=== PATIENT | male | born 1985 | race Caucasian/White ===

== ENCOUNTER 2017-05-28 11:25 | Emergency (ER) | payer MEDICAID, SELFPAY ==
[2017-05-28 11:26] VITALS: BP 162/88; PULSE 109; RESP 20; TEMP 36.6; O2SAT 98; BMI 41.3
--- NOTE | 2017-05-28 12:13 | RAD_ITS ---
STUDY: X-RAY - LEFT KNEE REASON FOR EXAM: Male, 32 years old. Left knee pain TECHNIQUE: 3 view(s) of the knee. COMPARISON: None. FINDINGS: Normal visualized distal femur. Normal visualized proximal tibia and fibula. Normal proximal tibiofibular articulation. Normal medial femorotibial compartment. Normal lateral femorotibial compartment. Normal patellofemoral articulation. The soft tissue structures are unremarkable. RAD/Knee 3 Views IMPRESSION: Normal x-ray examination of the knee. Electronically Signed: Anisha Mathews MD at 12:35 EDT Tel , Service support ,
--- NOTE | 2017-05-28 13:10 | ED.DCSUM_ITS ---
- ER Visit Summary Date of Service: 05/28/17 Chief Complaint: Chronic left knee pain with a history of gout History of Present Illness: The patient is a 32 M c/o atraumatic left knee pain and swelling. Patient does have a history of gout but is never in his knee before. It is normal in his foot and great toe. He states today he had pain swelling his left knee. Denies fever chills. Denies redness. No trauma. Is able to walk. Physical Examination: Appearing young male. Vital signs are stable afebrile and is no septic toxic is no acute distress. H EENT exam unremarkable neck nontender lungs clear to auscultation bilaterally. Heart regular rate and rhythm no murmur. Abdomen soft nontender nondistended no giving or masses extremities moves all 4 neurovascular intact his left knee is mildly swollen. There is not hot it is not red. He is able do flexion extension. There is no signs of septic joint. He has normal range of motion to his left hip, left knee , left foot and ankle. Left foot is neurovascular intact with DP pulse. There are no signs of trauma. Test Results: X-ray of his left knee is read as normal by myself the radiologist. I did go over the x-rays with the patient. I explained to him that it does not show the cartilage. Emergency Department Course and Treatment: Will be treated as gout with prednisone. 40 mg a day for 1 week. He will also be given limited [place] 10 no refill for pain. Treatment Plan: [] Disposition: Discharge Impression: Acute left knee pain secondary to gout This note was generated with [employer] dictation software. It may contain incorrect words, spelling, and punctuation that were not noted in review of the chart prior to signing ED Disposition - Plan for ED Patient: Chief Complaint: Lower Extremity Injury Referrals: Charles Novoa MD [Primary Care Provider] -
--- NOTE | 2017-05-28 13:20 | ED.DEP ---
ED Disposition - Plan for ED Patient: Disposition: Home or Assisted Living Chief Complaint: Lower Extremity Injury Instructions: ED Arthritis Gout Prescriptions: Hydrocodone/Acetaminophen [[place] 7.5-325 Tablet] 1 ea PO Q6H PRN PRN #10 tab PRN Reason: Pain Prednisone [Deltasone] 40 mg PO DAILY 10 Days tab Referrals: Charles Novoa MD [Primary Care Provider] - 3-5 Days if not improving Additional Instructions: Prednisone 40 g a day for the gout. Limited [place] for pain. Call follow-up your primary care physician if not improving. Return to the ER if fever or a lot worse.
--- NOTE | 2017-05-28 13:24 | DCINST.ED_ITS ---
ED Disposition - Plan for ED Patient: Disposition: Home or Assisted Living Chief Complaint: Lower Extremity Injury Instructions: ED Arthritis Gout Prescriptions: Hydrocodone/Acetaminophen [[place] 7.5-325 Tablet] 1 ea PO Q6H PRN PRN #10 tab PRN Reason: Pain Prednisone [Deltasone] 40 mg PO DAILY 10 Days tab Referrals: Charles Novoa MD [Primary Care Provider] - 3-5 Days if not improving Additional Instructions: Prednisone 40 g a day for the gout. Limited [place] for pain. Call follow-up your primary care physician if not improving. Return to the ER if fever or a lot worse.
[2017-05-28] MEDS: predniSONE 20 MG Tablet 60 MG PO (13:30)
[2017-05-28 13:31] VITALS: BP 134/87; PULSE 78; RESP 16
== END 2017-05-28 13:34 | disposition home or self-care (01) ==
PROVIDERS: Emergency Provider Emergency Medicine; Family Provider Family Medicine; PCP Family Medicine
DX: M10.9 Gout, unspecified (principal); K21.9 Gastro-esophageal reflux disease without esophagitis; Z72.0 Tobacco use; Z79.899 Other long term (current) drug therapy; Z90.49 Acquired absence of other specified parts of digestive tract
CPT/HCPCS: 73562; 99283

== ENCOUNTER 2017-07-04 20:49 | Emergency (ER) | payer MEDICAID, SELFPAY ==
[2017-07-04 20:50] VITALS: BP 135/84; PULSE 108; RESP 15; TEMP 37; BMI 39.1
--- NOTE | 2017-07-04 21:08 | ED.VISSUMM ---
- ER Visit Summary Date of Service: 07/04/17 Chief Complaint: Low back pain History of Present Illness: The patient is a 32 M past medical history of congenital atrophied kidney. Patient states that he has had low back pain radiating to both legs all the way down his buttocks hamstrings and was toes. Said is for a month. Is worse with movement. Denies any fall or trauma. No fever. No weakness. Denies any bowel or bladder incontinence or retention. Physical Examination: Well-appearing young male. Vital signs are stable afebrile. H EENT exam unremarkable. Neck nontender no lymphadenopathy. Lungs clear to auscultation bilaterally. Heart regular rhythm no murmur. Abdomen is soft nontender Oscar no giving or masses. Remedies moves all 4. Neurovascular intact. Both lower extremities he has 5 motor strength and normal sensation. No cauda equina. No saddle anesthesia. Normal medial thigh sensation. 5 out of 5 motor strength in both dorsi plantar flexion. He does have a positive straight leg raise at approximately 30?. Equal and symmetrical. No reproducible low back pain. No redness or warmth. No signs of trauma. Neurologic exam normal. Normal motor strength and sensation of both lower extremities. Test Results: None Emergency Department Course and Treatment: She will be discharged home with [place] 20 no refill. Prednisone 40 mg a day. For 1 week. Treatment Plan: Follow-up with your primary care physician as soon as possible to be scheduled for an MRI. Disposition: Discharge Impression: Acute low back pain with radiculopathy consistent with a lumbar disc This note was generated with [employer] dictation software. It may contain incorrect words, spelling, and punctuation that were not noted in review of the chart prior to signing ED Disposition - Plan for ED Patient: Chief Complaint: Back Referrals: Charles Novoa MD [Primary Care Provider] -
--- NOTE | 2017-07-04 21:13 | ED.DCSUM_ITS ---
- ER Visit Summary Date of Service: 07/04/17 Chief Complaint: Low back pain History of Present Illness: The patient is a 32 M past medical history of congenital atrophied kidney. Patient states that he has had low back pain radiating to both legs all the way down his buttocks hamstrings and was toes. Said is for a month. Is worse with movement. Denies any fall or trauma. No fever. No weakness. Denies any bowel or bladder incontinence or retention. Physical Examination: Well-appearing young male. Vital signs are stable afebrile. H EENT exam unremarkable. Neck nontender no lymphadenopathy. Lungs clear to auscultation bilaterally. Heart regular rhythm no murmur. Abdomen is soft nontender Oscar no giving or masses. Remedies moves all 4. Neurovascular intact. Both lower extremities he has 5 motor strength and normal sensation. No cauda equina. No saddle anesthesia. Normal medial thigh sensation. 5 out of 5 motor strength in both dorsi plantar flexion. He does have a positive straight leg raise at approximately 30?. Equal and symmetrical. No reproducible low back pain. No redness or warmth. No signs of trauma. Neurologic exam normal. Normal motor strength and sensation of both lower extremities. Test Results: None Emergency Department Course and Treatment: She will be discharged home with [place] 20 no refill. Prednisone 40 mg a day. For 1 week. Treatment Plan: Follow-up with your primary care physician as soon as possible to be scheduled for an MRI. Disposition: Discharge Impression: Acute low back pain with radiculopathy consistent with a lumbar disc This note was generated with [employer] dictation software. It may contain incorrect words, spelling, and punctuation that were not noted in review of the chart prior to signing ED Disposition - Plan for ED Patient: Chief Complaint: Back Referrals: Charles Novoa MD [Primary Care Provider] -
--- NOTE | 2017-07-04 21:13 | ED.DEP ---
ED Disposition - Plan for ED Patient: Disposition: Home or Assisted Living Chief Complaint: Back Instructions: ED Sciatica Prescriptions: Hydrocodone Bitart/Apap 5-325 [[place] 5MG-325MG] 1 - 2 tab PO Q4H PRN PRN #20 tab PRN Reason: Pain Prednisone [Deltasone] 40 mg PO DAILY 10 Days tab Referrals: Charles Novoa MD [Primary Care Provider] - As soon as possible Additional Instructions: Prednisone daily to decrease inflammation. [place] for pain. Call follow-up your primary care physician as soon as possible you need an MRI because your exam and back pain is consistent with a lumbar disc.
--- NOTE | 2017-07-04 21:16 | DCINST.ED_ITS ---
ED Disposition - Plan for ED Patient: Disposition: Home or Assisted Living Chief Complaint: Back Instructions: ED Sciatica Prescriptions: Hydrocodone Bitart/Apap 5-325 [[place] 5MG-325MG] 1 - 2 tab PO Q4H PRN PRN #20 tab PRN Reason: Pain Prednisone [Deltasone] 40 mg PO DAILY 10 Days tab Referrals: Charles Novoa MD [Primary Care Provider] - As soon as possible Additional Instructions: Prednisone daily to decrease inflammation. [place] for pain. Call follow-up your primary care physician as soon as possible you need an MRI because your exam and back pain is consistent with a lumbar disc.
[2017-07-04 21:25] VITALS: PULSE 86; RESP 14
[2017-07-04] MEDS: HYDROcodone Bitartrate/Apap 5/325 Tablet PO (21:25)
[2017-07-04] MEDS: predniSONE 20 MG Tablet 40 MG PO (21:25)
== END 2017-07-04 21:31 | disposition home or self-care (01) ==
PROVIDERS: Emergency Provider Emergency Medicine; Family Provider Family Medicine; PCP Family Medicine
DX: M54.5 Low back pain (principal); M54.16 Radiculopathy, lumbar region; Q60.5 Renal hypoplasia, unspecified; K21.9 Gastro-esophageal reflux disease without esophagitis; Z72.0 Tobacco use; Z79.899 Other long term (current) drug therapy
CPT/HCPCS: 99283

== ENCOUNTER 2017-09-01 09:52 | Emergency (ER) | payer MEDICAID, SELFPAY ==
[2017-09-01 09:52] VITALS: BP 153/90; PULSE 100; RESP 18; TEMP 36.4; O2SAT 99; BMI 38.4
--- NOTE | 2017-09-01 10:10 | ED.VISSUMM ---
- ER Visit Summary Date of Service: 09/01/17 Chief Complaint: Foot pain History of Present Illness: The patient is a 32 M with right-sided foot pain. The pain is over his proximal and dorsal right foot near the ankle. It does not radiate. This came on gradually over the last 2 days. He denies any injury or inciting event. He had this before, but was unsure of the cause and it seemed to get better. He does have a history of gout in his right small toe. He has not noted any redness, warmth, or swelling. Denies any weakness or numbness. Denies any skin changes. Denies any history of DVT or calf pain. No fevers or systemic symptoms. Physical Examination: Afebrile and vital signs unremarkable. Nontoxic and in no acute distress. Foot and ankle inspection is normal. Skin appears normal. No deformities. Right lower leg is nontender except for his foot. He does have some dorsal and proximal foot tenderness. Good range of motion. No laxity. No warmth or redness noted. Neurovascularly intact distally. Test Results: X-rays ordered Emergency Department Course and Treatment: Patient treated with [place] and naproxen while awaiting results. X-rays showed heel spurs but nothing acute. Patient will be given crutches. Rest, ice, elevate. Anti-inflammatories for pain. Follow-up with primary care. Return for redness, warmth, swelling, increasing pain, or any other concerning symptoms. Treatment Plan: As above Disposition: Discharged Impression: 1. Right foot pain This note was generated with [employer] dictation software. It may contain incorrect words, spelling, and punctuation that were not noted in review of the chart prior to signing ED Disposition - Plan for ED Patient: Chief Complaint: Lower Extremity Injury Referrals: Charles Novoa MD [Primary Care Provider] -
--- NOTE | 2017-09-01 10:25 | RAD_ITS ---
STUDY: X-RAY - LEFT FOOT CLINICAL: Male, 32 years old. Pain. No known injury. TECHNIQUE: 3 view(s) of the foot. COMPARISON: None. FINDINGS: There is an enthesophyte involving the posterior superior calcaneus at the site of insertion of the Achilles tendon. Small plantar spur. Normal visualized subtalar, talonavicular, calcaneocuboid, tarsal and tarsometatarsal articulations. Normal metatarsi. Normal metatarsophalangeal joint of the great toe. Normal tibial and fibular sesamoid bones. Normal interphalangeal joint of the great toe. Normal phalanges of the great toe. Normal second through fifth metatarsophalangeal joints. Normal interphalangeal joints and phalanges of the lesser toes. The soft tissue structures are unremarkable. RAD/Foot min 3 Views IMPRESSION: Calcaneal spurs. Electronically Signed: Moy De Luna MD at 11:06 EDT Tel [phone], Service support ,
[2017-09-01] MEDS: Naproxen 500 MG Tablet PO (10:30)
[2017-09-01] MEDS: HYDROcodone Bitartrate/Apap 5/325 Tablet PO (10:30)
--- NOTE | 2017-09-01 11:28 | ED.DEP ---
ED Disposition - Plan for ED Patient: Chief Complaint: Lower Extremity Injury Instructions: Osteoarthritis: Protecting Your Joints Prescriptions: Naproxen [Naprosyn] 500 mg PO BID #14 tab Referrals: Charles Novoa MD [Primary Care Provider] -
== END 2017-09-01 11:39 | disposition home or self-care (01) ==
LOC: ED 10:08
PROVIDERS: Emergency Provider Emergency Medicine; Family Provider Family Medicine; PCP Family Medicine
DX: M79.671 Pain in right foot (principal); M77.32 Calcaneal spur, left foot; Z79.899 Other long term (current) drug therapy; Z86.39 Personal history of other endocrine, nutritional and metabolic disease
CPT/HCPCS: 73630; 99282

== ENCOUNTER 2017-10-29 02:02 | Emergency (ER) | payer MEDICAID, SELFPAY ==
[2017-10-29 02:02] VITALS: RESP 18; O2SAT 99
[2017-10-29 02:03] VITALS: BP 167/97; PULSE 90; RESP 17; TEMP 36.4; O2SAT 99; BMI 39.4
--- NOTE | 2017-10-29 02:14 | ED.RN ---
RN CALLED FOR EKG, PULLED OLD EKGS FOR
[2017-10-29] MEDS: Ipratropium/Albuterol Sulfate 3 ML AMPUL.NEB INHALATION (02:19)
[2017-10-29 02:20] VITALS: PULSE 81; RESP 10
--- NOTE | 2017-10-29 03:21 | ED.VISSUMM ---
- ER Visit Summary Date of Service: 10/29/17 Chief Complaint: [Cough and chest discomfort] History of Present Illness: The patient is a 32 M [presents the emergency department complaint of cough that started about a week ago. Patient coughing up some green to yellow phlegm at times. He denies any fever. Patient states that since 9 PM he said some tightness in his chest. He denies nausea or vomiting. Patient denies recent travel or surgery. Patient denies any sick contacts.] Physical Examination: [HEENT-PERRLA, EOMI. Cranial nerves II through XII grossly intact. TMs clear. Mucous membranes moist. No adenopathy. Cardiovascular-regular rate and rhythm without murmur or ectopy Lungs-good aeration bilaterally. Patient has some faint expiratory wheezes noted. No accessory muscle use or retractions. Abdomen-normoactive bowel sounds, soft, nontender, no rebound or rigidity, no peritoneal signs. Extremities-intact ?4, normal range of motion, normal pulses, atraumatic] Test Results: [Chest x-ray obtained showed nothing acute. EKG obtained showed a sinus rhythm with a ventricular rate of 82 bpm with occasional PACs otherwise nothing acute.] Emergency Department Course and Treatment: [Patient was given a DuoNeb aerosol with good symptom relief. Patient will be started on prednisone and Zithromax] Treatment Plan: Patient will be dispensed an albuterol MDI and given a prescription for prednisone as well as Zithromax [] Disposition: [Discharged home in stable condition. Patient advised to follow-up with his primary care physician within next 5-7 days.] Impression: [Asthmatic bronchitis] This note was generated with [employer] dictation software. It may contain incorrect words, spelling, and punctuation that were not noted in review of the chart prior to signing ED Disposition - Plan for ED Patient: Chief Complaint: Chest Pain Referrals: Charles Novoa MD [Primary Care Provider] -
--- NOTE | 2017-10-29 03:24 | ED.DEP ---
ED Disposition - Plan for ED Patient: Chief Complaint: Chest Pain Instructions: ED Bronchitis Asthmatic Prescriptions: Azithromycin [Zithromax] 250 mg PO DAILY #4 tab Prednisone [Deltasone] 20 mg PO BID #6 tab Referrals: Charles Novoa MD [Primary Care Provider] - 5-7 Days
[2017-10-29 03:32] VITALS: BP 125/83; PULSE 82; RESP 16; O2SAT 99
[2017-10-29] MEDS: Azithromycin 250 MG Tablet 500 MG PO (03:37)
[2017-10-29] MEDS: predniSONE 20 MG Tablet 40 MG PO (03:37)
== END 2017-10-29 03:38 | disposition home or self-care (01) ==
LOC: ED 02:22
PROVIDERS: Emergency Provider Emergency Medicine; Family Provider Family Medicine; PCP Family Medicine
DX: J45.909 Unspecified asthma, uncomplicated (principal); I49.1 Atrial premature depolarization; Q60.0 Renal agenesis, unilateral; Z72.0 Tobacco use; Z79.899 Other long term (current) drug therapy
CPT/HCPCS: 71046; 93005; 94640; 99283; A4216

== ENCOUNTER 2017-11-28 01:12 | Emergency (ER) | payer MEDICAID, SELFPAY ==
[2017-11-28 01:13] VITALS: BP 135/86; PULSE 134; RESP 18; TEMP 36.7; O2SAT 96; BMI 40.1
--- NOTE | 2017-11-28 01:29 | EKG12_ITS ---
Test Reason : BACK PAIN Blood Pressure : / mmHG Vent. Rate : 115 BPM Atrial Rate : 115 BPM P-R Int : 156 ms QRS Dur : 064 ms QT Int : 288 ms P-R-T Axes : 060 061 040 degrees QTc Int : 398 ms Sinus tachycardia Low voltage QRS Borderline ECG Confirmed by MAYTE BOLAÑOS MD ([id number]), graphics editor CALLIE ENRIQUEZ ([id number] on 12/01/2017 8:57:40 AM Referred By: JARVIS Confirmed By:MAYTE BOLAÑOS MD
--- NOTE | 2017-11-28 01:31 | CT_ITS ---
STUDY: CT ABDOMEN AND PELVIS WITHOUT CONTRAST REASON FOR EXAM: Male, 32 years old. Back pain [place]. History of back pain and elevated blood pressure, GERD, single right kidney since , multiple abdominal surgeries as child, cholecystectomy RADIATION DOSAGE (If Supplied By Facility): CTDIvol = ( 26.62 ) mGy, DLP = ( 1481.34 ) mGycm TECHNIQUE: Transaxial 3.75 mm images were obtained from the dome of the diaphragm to the symphysis pubis without oral contrast, and without intravenous contrast. Sagittal and coronal images were reconstructed. Negative noncontrast Individualized dose optimization techniques were used for this CT. COMPARISON: None. FINDINGS: Minimal atelectasis in the left. The visualized portions of the heart are within normal limits. There is decreased attenuation of the enlarged liver consistent with steatosis. There are surgical clips in the gallbladder fossa consistent with a prior cholecystectomy. Normal spleen. Normal pancreas. Normal bilateral adrenal glands. Stable lobular contour and likely compensatory hypertrophy. The right ureter extensive posterior to the right kidney to the right lateral abdominal wall, then loops inferiorly to the right UVJ as on previous exam. There is severe cortical atrophy of the left kidney, consistent with chronic medical renal disease. Normal visualized stomach. Normal small intestine. Normal colon. The appendix is visualized and appears normal. Normal abdominal aorta. Normal inferior vena cava. Normal retroperitoneum. Small outpouching along the left wall of the urinary bladder not seen on previous examination probable small diverticulum. Normal visualized prostate gland. Normal abdominal wall. Obesity. Stable mild retrolisthesis of L5 on S1. Spinal canal and foraminal stenosis L3, L4 and L5 without change.. CT/Abdomen/Pelvis without Cont IMPRESSION: Mild hepatomegaly and stable hepatic steatosis. Cholecystectomy. Stable lobular contour of the right kidney with mild hypertrophy, postsurgical changes along the right ureteral course and severe left renal involution are stable findings. Other nonacute findings as outlined above. Electronically Signed: Patricia Carrillo MD at 2:42 EDT , Service support ,
--- NOTE | 2017-11-28 01:31 | CT_ITS ---
STUDY: CT CHEST WITHOUT CONTRAST REASON FOR EXAM: Male, 32 years old. Back pain [place]. History of back pain and elevated blood pressure, GERD, single right kidney since , multiple abdominal surgeries as child, cholecystectomy RADIATION DOSAGE (If Supplied By Facility): CTDIvol = ( 24.51 ) mGy, DLP = ( 918.20 ) mGycm TECHNIQUE: Transaxial 2.5 mm imaging was performed without the administration of intravenous contrast material. Multiplanar coronal and sagittal images were reformatted. This examination is limited for the evaluation of gastrointestinal, solid organs and vascular structures due to the lack of intravenous contrast. Individualized dose optimization techniques were used for this CT. COMPARISON: Chest x-ray 10/29/2017. FINDINGS: Round low-attenuation 1 cm in the left thyroid lobe is indeterminate. Minimal atelectasis in the lingula. Few linear interstitial changes in the bases likely scarring. Noncalcified nodule in the left upper lobe approximately 0.3 x 0.5 cm image 38 series 6. There is no demonstrated pleural abnormality. Normal heart and pericardium. Normal mediastinum. Normal hilar regions. Normal unenhanced pulmonary arteries. Normal aorta arch and descending thoracic aorta. Age-appropriate osseous structures. Obesity. Upper abdominal assessment please refer to CT abdomen pelvis. CT/Chest without Contrast IMPRESSION: There is no acute cardiopulmonary disease. Mild atelectasis in the lingula. Other nonacute findings as outlined above. Electronically Signed: Patricia Carrillo MD at 2:32 EDT , Service support ,
--- NOTE | 2017-11-28 01:32 | ED.VISSUMM ---
- ER Visit Summary Date of Service: 11/28/17 Chief Complaint: Back pain History of Present Illness: The patient is a 32 M who presents for back pain with onset yesterday evening. Patient [place], and he began developing mid back pain last evening. Pain is severe. He has history of chronic back pain but states that is usually in the lower back, and this is in the upper back. Pain is midline. No radiation. Patient denies nausea or vomiting or abdominal pain. He does have associated mild shortness of breath and cough. Denies numbness or tingling in the legs, no weakness, no fever, no abdominal pain, no bowel or bladder incontinence or retention. Patient has history of only one kidney. Denies alcohol or drug use. Physical Examination: Vital signs: afebrile, hemodynamically stable, no hypoxia on room air General: well nourished, well developed, eating on edge of bed, appears uncomfortable, fidgety Skin: warm, dry, no rash, no pallor HEENT: normocephalic and atraumatic; PERRL, EOMI, moist mucous membranes Cardiovascular: Tachycardiac rate and regular rhythm without murmurs, no peripheral edema, 2+ pulses all distal extremities Respiratory: No increased work of breathing, lungs are clear to auscultation bilaterally, no rales, rhonchi or wheezing Abdominal: Abdomen is soft, nontender with normoactive bowel sounds, no guarding or rebound, no pulsatile masses Back: No significant midline tenderness deformities or step-offs in the thoracic or lumbar spine, no significant paraspinal tenderness, no CVA tenderness MSK: Moves all extremities, no deformities, normal strength Neuro: Awake and alert, oriented ?4. No facial droop, sensation and motor function intact and symmetric Test Results: Clinical Impression(s) from Imaging Studies Abdomen/Pelvis CT 11/28/17 01:31 IMPRESSION: Mild hepatomegaly and stable hepatic steatosis. Cholecystectomy. Stable lobular contour of the right kidney with mild hypertrophy, postsurgical changes along the right ureteral course and severe left renal involution are stable findings. Other nonacute findings as outlined above. Electronically Signed: Patricia Carrillo MD at 2:42 EDT , Service support , ADDENDUM: 11/28/[address] 11/28/17 01:31 IMPRESSION: There is no acute cardiopulmonary disease. Mild atelectasis in the lingula. Other nonacute findings as outlined above. Electronically Signed: Patricia Carrillo MD at 2:32 EDT , Service support , ADDENDUM: 11/28/17 0240 Abnormal Lab Results 11/28/17 11/28/17 01:35 01:35 WBC 14.9 H RBC 5.51 Hgb 15.8 Hct 47.8 MCV 86.8 MCH 28.7 MCHC 33.1 RDW 15.1 H RDW Differential 48.1 H Plt Count 267 MPV 10.0 Immature Gran % (Auto) 0.300 Neut % (Auto) 70.0 Lymph % (Auto) 20.1 Gage % (Auto) 6.4 Eos % (Auto) 2.9 Baso % (Auto) 0.3 Absolute Neuts (auto) 10.5 H Absolute Lymphs (auto) 3.00 Total Counted Not Reportable Sodium 140 Potassium 3.5 Chloride 110 H Carbon Dioxide 21.0 Anion Gap 9 BUN 17 Creatinine 1.50 H Estim Creat Clear Calc 67.77 Est GFR (MDRD) Af Amer 69 Est GFR (MDRD) Non-Af 57 L BUN/Creatinine Ratio 11.3 Glucose 136 H Calcium 8.5 Total Bilirubin 0.30 AST 18 ALT 32 Alkaline Phosphatase 78 Troponin I < 0.015 Total Protein 7.3 Albumin 3.4 Globulin 3.9 Albumin/Globulin Ratio 0.9 Lipase 178 Medications Given Discontinued Medications Acetaminophen (Tylenol) 1,000 mg PO X1 ONE Stop: 11/28/17 04:08 Last Admin: 11/28/17 04:25 Dose: 1,000 mg Hydromorphone HCl (Dilaudid Inj) 1 mg IV X1 ONE Stop: 11/28/17 01:30 Last Admin: 11/28/17 01:40 Dose: 1 mg Sodium Chloride () 1,000 mls @ 1,000 mls/hr IV .Q1H ONE Stop: 11/28/17 02:28 Last Admin: 11/28/17 01:40 Dose: 1,000 mls/hr Ondansetron HCl (Zofran) 4 mg IV X1 ONE Stop: 11/28/17 01:30 Last Admin: 11/28/17 01:40 Dose: 4 mg Orphenadrine Citrate (Norflex) 60 mg IV X1 ONE Stop: 11/28/17 04:07 Last Admin: 11/28/17 04:25 Dose: 60 mg Emergency Department Course and Treatment: Patient presents with midthoracic back pain and tachycardia, with appearance of great discomfort. He states his normal back pain is in the lower back and that this is different. Differential includes musculoskeletal pain, although the pain was not completely reproducible on exam. Thus, labs were performed and a CT of the chest abdomen and pelvis to look for intra-abdominal or intrathoracic pathology. Because patient only has one kidney, this limits the use of contrast to do a CTA to evaluate for dissection. Patient was given Dilaudid and IV fluids, Zofran for symptomatic relief. Labs showed leukocytosis of 14.9 without left shift, no hepatic or electrolyte derangements, renal function at patient's baseline with creatinine of 1.5, negative troponin, EKG that showed no ischemic changes. CT the chest abdomen and pelvis showed no acute process to explain patient's pain. On reevaluation after receiving IV fluids, Zofran and Dilaudid, patient had great improvement in his back pain and was much more comfortable. His tachycardia had resolved. His back was reevaluated, and now there was specific reproducible tenderness in the thoracic region, especially the right paraspinal musculature, with a knotted muscle palpated in the spot of maximum tenderness. This does make the diagnosis most likely musculoskeletal pain, as it is now reproducible. Because patient is much more comfortable now, and now has pain that is reproducible with muscular palpation, this makes a dissection much less likely. Thus no further workup was performed for this. Patient was given a dose of Norflex and Tylenol in the emergency department. Patient was given a prescription for Flexeril and Tylenol. NSAIDs were avoided as patient does have the single kidney and mild renal dysfunction. Patient was discharged home with a ride in improved condition. Treatment Plan: [] Disposition: [] Impression: Right thoracic strain and right muscle spasm This note was generated with [employer] software. It may contain incorrect words, spelling, and punctuation that were not noted in review of the chart prior to signing ED Disposition - Plan for ED Patient: Disposition: Home or Assisted Living Chief Complaint: Back Instructions: ED Spasm Back No Trauma Prescriptions: Acetaminophen [Tylenol] 650 mg PO 4X/DAY PRN PRN #30 tab PRN Reason: Pain Cyclobenzaprine [Flexeril] 5 mg PO TID PRN PRN #20 tab PRN Reason: Muscle Spasm Referrals: Charles Novoa MD [Primary Care Provider] - 3-5 Days if not improving
[2017-11-28] MEDS: Ondansetron 4 MG/2 ML Vial IV (01:40)
[2017-11-28] MEDS: 0.9% Normal Saline 1,000 ML 1000 ML IV (01:40)
[2017-11-28] MEDS: HYDROmorphone 1 MG/ML Syringe IV (01:40)
[2017-11-28 01:48] LABS: Absolute Neutrophil Count 10.5 X10^3/uL (2.0-7.7); Basophil# 0.05 X10^3/uL; Basophil% 0.3 % (0-1); Eosinophil# 0.43 X10^3/uL; Eosinophils% 2.9 % (0-5); Hematocrit 47.8 % (40-54); Hemoglobin 15.8 g/dl (13.0-16.5); Lymphocyte % 20.1 % (19-41); Mean Corp Hgb Conc 33.1 g/gl (32-36); Mean Corpuscular Hgb 28.7 pg (27.0-32.0); Mean Corpuscular Volume 86.8 fL (80-94); Monocyte# 0.96 X10^3/uL; Monocyte% 6.4 % (0-10); Neutrophil # 10.45 X10^3/uL (2.7-7.7); Platelet Count 267 K/mm3 (150-450); RBC Distribution Width CV 15.1 % (11.6-14.6); RBC Distribution Width SD 48.1 fl (35.1-43.9); Red Blood Count 5.51 M/mm3 (4.6-6.2); White Blood Count 14.9 K/mm3 (4.4-11.0)
[2017-11-28 01:50] LABS: POSITIVE COUNT NO; POSITIVE DIFFERENTIAL NO; POSITIVE MORPHOLOGY NO
[2017-11-28 02:08] LABS: ALB/GLOB Ratio 0.9 RATIO (0.9-2.4); AST(SGOT) 18 U/L (15-37); Alanine Aminotransfer ALT/SGPT 32 U/L (16-61); Albumin, Serum 3.4 g/dL (3.2-5.0); Alkaline Phosphatase 78 U/L (45-117); Anion Gap 9 (5-15); BUN 17 mg/dL (7-18); BUN/Creat Ratio 11.3 RATIO (10-20); Calcium,Total 8.5 mg/dL (8.5-10.1); Chloride 110 mmol/L (98-107); EST Glomerular Filtration Rate 57 mL/min (>60); Est Glom Filt Rate - Afr Amer 69 mL/min (>60); Estimated Creatinine Clearance 67.77 ml/min; Globulin 3.9 g/dL (2.2-4.2); Glucose 136 mg/dL (74-106); Lipase 178 U/L (73-393); Potassium 3.5 mmol/L (3.5-5.1); Protein, Total 7.3 g/dL (6.4-8.2); Sodium Level 140 mmol/L (136-145)
--- NOTE | 2017-11-28 04:10 | ED.DEP ---
ED Disposition - Plan for ED Patient: Disposition: Home or Assisted Living Chief Complaint: Back Instructions: ED Spasm Back No Trauma Prescriptions: Acetaminophen [Tylenol] 650 mg PO 4X/DAY PRN PRN #30 tab PRN Reason: Pain Cyclobenzaprine [Flexeril] 5 mg PO TID PRN PRN #20 tab PRN Reason: Muscle Spasm Referrals: Charles Novoa MD [Primary Care Provider] - 3-5 Days if not improving
[2017-11-28] MEDS: Acetaminophen 500 MG Tablet 1000 MG PO (04:25)
[2017-11-28] MEDS: Orphenadrine 60 MG/2 ML Ampul IV (04:25)
[2017-11-28 04:49] VITALS: RESP 18
== END 2017-11-28 04:49 | disposition home or self-care (01) ==
PROVIDERS: Emergency Provider Emergency Medicine; Family Provider Family Medicine; PCP Family Medicine
DX: S29.012A Strain of muscle and tendon of back wall of thorax, initial encounter (principal); M62.830 Muscle spasm of back; X58.XXXA Exposure to other specified factors, initial encounter; Y93.9 Activity, unspecified; Y92.9 Unspecified place or not applicable; Y99.9 Unspecified external cause status; Q60.0 Renal agenesis, unilateral; R00.0 Tachycardia, unspecified; M54.9 Dorsalgia, unspecified; G89.29 Other chronic pain; E66.9 Obesity, unspecified; Z79.899 Other long term (current) drug therapy
CPT/HCPCS: 71250; 74176; 80053; 83690; 84484; 85025; 93005; 96361; 96374; 96375; 99285; J7030; A4216; J2405

== ENCOUNTER 2019-01-31 03:29 | Emergency (ER) | payer MEDICAID, SELFPAY ==
[2019-01-31 03:30] VITALS: BP 141/96; PULSE 109; RESP 18; TEMP 36.3; O2SAT 99; BMI 37.1
--- NOTE | 2019-01-31 03:34 | ED.VIS.GEN ---
History of Present Illness Chief Complaint: Lower Extremity Injury Informant: Patient Onset: Days Context: Gradual Onset Timing: Continuous Current Severity: Moderate Maximum Severity: Severe Narrative: The patient is a 33-year-old male with history of gout the presents to the emergency department with atraumatic left ankle pain. Patient states his symptoms began about 3 days ago. States it started as a dull ache. Since then, he is a lot more pain. He is tried ice and Tylenol with little improvement. He denies any fevers or chills. He denies any injury. He states this does feel like his gout flare in the past. The patient is otherwise healthy. Prior similar symptoms: Yes Recent Illness/Hospitalization: No Past Medical History - Allergies and Home Meds Allergies/Adverse Reactions: Allergies No Known Allergies Allergy (Verified 11/28/17 01:16) Primary Care Physician: Charles Novoa MD [Primary Care Provider] - Prior records reviewed: Yes Past Medical History: - - Gout, single kidney Smoking Status: Current every day smoker Review of Systems General: Denies: Chills, Fever, Sweats Eyes: Denies: Visual changes - bilaterally, Diplopia ENT: Denies: Rhinorrhea, Sore throat Cardiovascular: Denies: Chest pain, Palpitations Respiratory: Denies: Dyspnea, Cough, Dyspnea on exertion Gastrointestinal: Denies: Abdominal pain, Nausea, Vomiting, Diarrhea, Melena, Hematochezia Genitourinary: Denies: Dysuria, Hematuria, Frequency Musculoskeletal: Reports: Myalgias. Denies: Back pain, Extremity Pain Skin: Denies: Rash, Wounds Neurological: Denies: Headache, Weakness, Numbness Physical Exam Vital Signs/Narrative: Vital Signs Temp Pulse Resp BP Pulse Ox 01/31/19 03:30 97.3 F L 109 H 18 141/96 H 99 Inital Vital Signs reviewed: Yes General: Well nourished, Well developed, No Acute Distress Head: Normocephalic, Atraumatic Eyes: Perrl, EOMI ENT: Moist mucous membranes, No rhinorrhea Neck: Supple, Nontender Cardiovascular: Regular rate, Regular rhythm, No murmurs Respiratory: No distress, CTA bilaterally, Chest nontender Abdomen: Soft, Nontender, Nondistended, Normal bowel sounds Back: Nontender, Normal Inspection Extremities: No edema, Tenderness - Tenderness over the left lateral malleolus. No significant edema or erythema. No pain with small arc range of motion. Normal pulses. Skin: Normal color, No rash Neurological: Alert, Oriented x3, Cranial nerves II-XII grossly intact, Normal Strength, Normal Sensation Psychological: Normal affect, Normal Mood Diagnostic/Tx/Re-eval - Medical Decision Making The patient symptoms are consistent with gout flare. He said no trauma. He has no pain along the venous return system with palpation. I do not feel that x-rays are necessary. He has normal pulses. There is no evidence of septic joint. The patient will be treated with prednisone and a short course of [place]. He was counseled on dietary foods to avoid and abstaining from alcohol. He is comfortable with this plan of care and will be discharged home. Impression 1. Acute gout left ankle ED Disposition - Plan for ED Patient: Instructions: Gouty Arthritis Prescriptions: Prednisone [Deltasone] 40 mg PO DAILY #10 tab Prescription Printed Hydrocodone Bitart/Apap 5-325 [[place] 5MG-325MG] 1 tab PO Q6H PRN PRN 3 Days #10 tab PRN Reason: Pain Prescription Printed Referrals: Charles Novoa MD [Primary Care Provider] -
[2019-01-31] MEDS: HYDROcodone Bitartrate/Apap 5/325 Tablet PO (03:38)
[2019-01-31] MEDS: predniSONE 20 MG Tablet 40 MG PO (03:38)
[2019-01-31] MEDS: Naproxen 500 MG Tablet PO (03:38)
== END 2019-01-31 03:50 | disposition home or self-care (01) ==
LOC: ED 03:45
PROVIDERS: Emergency Provider Emergency Medicine; Family Provider Family Medicine; PCP Family Medicine
DX: M10.9 Gout, unspecified (principal); F17.200 Nicotine dependence, unspecified, uncomplicated
CPT/HCPCS: 99285

== ENCOUNTER 2019-12-24 06:29 | Emergency (ER) | payer MEDICAID, SELFPAY ==
[2019-12-24 06:31] VITALS: BP 138/90; PULSE 113; RESP 18; TEMP 36.8; O2SAT 99; BMI 37.3
--- NOTE | 2019-12-24 06:36 | ED.DCSUM_ITS ---
History of Present Illness Informant: Patient Onset: Days - 2 Context: Gradual Onset Timing: Continuous Quality of Pain: Aching Location: Left knee, more laterally Current Severity: Severe Maximum Severity: Severe Worsened by: Fully straightening or bending Relieved by: Remaining still Associated Symptoms: Loss of Funtion - Trouble moving it. Negative for: Parasthesia, Weakness Narrative: Denies any injury. Spontaneous onset of pain and swelling in his knee, really has been more laterally. No falls. No fevers, chills, rashes or color changes that he has noted. States he has a history of gout, states this feels different than when he had gout in the past but he has never had it in the knee. He has had it in his ankles and in one of the MCP joints of his right hand before, they were diagnosed clinically without withdrawing fluid and resolved with prednis one. Also born with a solitary kidney, so he is advised to stay away from ibuprofen but he did try it yesterday, it did not help this pain at all. Patient presents by ambulance because he is unable to put any weight on it or move his left knee. <Kurtis Crowley - Last Filed: 12/24/19 06:58> <Vinny Gutiérrez - Last Filed: 12/24/19 08:55> Chief Complaint: Lower Extremity Injury - Past Medical History (1) Solitary kidney, congenital Status: Chronic (2) Gout Status: Chronic <Kurtis Crowley - Last Filed: 12/24/19 06:58> Past Medical History Smoking Status: Current every day smoker Drugs: None <Kurtis Crowley - Last Filed: 12/24/19 06:58> <Vinny Gutiérrez - Last Filed: 12/24/19 08:55> - Allergies and Home Meds Allergies/Adverse Reactions: Allergies No Known Allergies Allergy (Verified 01/31/19 03:34) Primary Care Physician: Charles Novoa MD [Primary Care Provider] - Review of Systems General: Denies: Chills, Fever, Sweats Eyes: Denies: Visual changes - bilaterally, Diplopia ENT: Denies: Rhinorrhea, Sore throat Cardiovascular: Denies: Chest pain, Palpitations Respiratory: Denies: Dyspnea, Cough, Dyspnea on exertion Gastrointestinal: Denies: Abdominal pain, Nausea, Vomiting, Diarrhea, Melena, Hematochezia Genitourinary: Denies: Dysuria, Hematuria, Frequency Musculoskeletal: Reports: Swelling - focally at L knee, Extremity Pain. Denies: Neck pain, Back pain Skin: Denies: Rash, Wounds Neurological: Denies: Headache, Weakness, Numbness <Kurtis Crowley - Last Filed: 12/24/19 06:58> Physical Exam Vital Signs/Narrative: Vital Signs Temp Pulse Resp BP Pulse Ox 12/24/19 06:31 98.2 F 113 H 18 138/90 H 99 Inital Vital Signs reviewed: Yes - Extremity Exam Left Femur: - - All compartments soft, nondistended Left Knee: Limited ROM - Very limited range of motion, is able to perform short arc but not very far, and cannot extend completely. There appears to be a decent knee effusion. Anteriorly around the patella there is diffuse tenderness., - - The joint is slightly warmer than the surrounding areas of the lower extremity, but the skin is not erythematous or with any other abnormalities. Left Tib Fib: - - All compartments soft, nondistended General: Well nourished, Well developed, - - NAD Head: Normocephalic, Atraumatic Skin: Normal color, No rash, No Trauma Neurological: Alert, Oriented x3, Cranial nerves II-XII grossly intact, Normal Strength, Normal Sensation Psychological: Normal affect, Normal Mood <Kurtis Crowley - Last Filed: 12/24/19 06:58> Vital Signs/Narrative: Vital Signs Temp Pulse Resp BP Pulse Ox 12/24/19 06:31 98.2 F 113 H 18 138/90 H 99 <Vinny Gutiérrez - Last Filed: 12/24/19 08:55> Diagnostic/Tx/Re-eval - Medical Decision Making Differential includes crystal induced arthritis in addition to septic arthritis, the latter he has no obvious risk factors for or reason to have. X-ray was obtained, shows effusion but no other acute abnormalities on my interpretation, 4 views left knee. Arthrocentesis was performed. 50 cc of yellow transparent fluid with positive string sign was withdrawn, patient tolerated well. Blood work and fluid analysis will be checked out the oncoming physician at shift change. <Kurtis Crowley - Last Filed: 12/24/19 06:58> Laboratory Last Values WBC 15.8 K/mm3 (4.4-11.0) H 12/24/19 07:00 RBC 5.87 M/mm3 (4.6-6.2) 12/24/19 07:00 Hgb 16.3 g/dL (13.0-16.5) 12/24/19 07:00 Hct 51.7 % (40-54) 12/24/19 07:00 MCV 88.1 fL (80-94) 12/24/19 07:00 MCH 27.8 pg (27.0-32.0) 12/24/19 07:00 MCHC 31.5 g/dL (32-36) L 12/24/19 07:00 RDW Std Deviation 46.8 fl (35.1-43.9) H 12/24/19 07:00 RDW Coeff of Hui 14.4 % (11.6-14.6) 12/24/19 07:00 Plt Count 284 K/mm3 (150-450) 12/24/19 07:00 MPV 9.1 fl (6.2-12.0) 12/24/19 07:00 Immature Gran % (Auto) 0.400 % (0.0-0.9) 12/24/19 07:00 Neut % (Auto) 69.6 % (47-70) 12/24/19 07:00 Lymph % (Auto) 14.4 % (19-41) L 12/24/19 07:00 [place] % (Auto) 8.7 % (0-10) 12/24/19 07:00 Eos % (Auto) 6.3 % (0-5) H 12/24/19 07:00 Baso % (Auto) 0.6 % (0-1) 12/24/19 07:00 Absolute Neuts (auto) 11.0 X10^3/uL (2.0-7.7) H 12/24/19 07:00 Absolute Lymphs (auto) 2.27 X10^3/uL (0.83-4.51) 12/24/19 07:00 Nucleated RBC % 0 % (0-5) 12/24/19 07:00 Sodium 141 mmol/L (136-145) 12/24/19 07:00 Potassium 4.0 mmol/L (3.5-5.1) 12/24/19 07:00 Chloride 114 mmol/L (98-107) H 12/24/19 07:00 Carbon Dioxide 23.0 mmol/L (21.0-32.0) 12/24/19 07:00 Anion Gap 4 (5-15) L 12/24/19 07:00 BUN 22 mg/dL (7-18) H 12/24/19 07:00 Creatinine 1.43 mg/dL (0.70-1.30) H 12/24/19 07:00 Estim Creat Clear Calc 72.10 ml/min 12/24/19 07:00 Est GFR (MDRD) Af Amer 72 mL/min (>60) 12/24/19 07:00 Est GFR (MDRD) Non-Af 60 mL/min (>60) 12/24/19 07:00 BUN/Creatinine Ratio 15.4 RATIO (-20) 12/24/19 07:00 Glucose 99 mg/dL (74-106) 12/24/19 07:00 Uric Acid 7.6 mg/dL (3.5-7.2) H 12/24/19 07:00 Calcium 8.9 mg/dL (8.5-10.1) 12/24/19 07:00 Fluid Source OTHER 12/24/19 07:00 Fluid Color LT YEL 12/24/19 07:00 Fluid Appearance CLOUDY 12/24/19 07:00 Fluid WBC 15.470 10^3/uL 12/24/19 07:00 Fluid RBC 634 /mm3 12/24/19 07:00 Fluid Tot Cell Count 15.508 10^3/ul 12/24/19 07:00 Fld Polynuclear WBCs # 14.616 10^3/uL 12/24/19 07:00 Fld Polynuclear WBCs % 93.5 % 12/24/19 07:00 Fluid Mononuclear WBCs 1.019 10^3/uL 12/24/19 07:00 Fld Mononuclear WBCs % 6.5 % 12/24/19 07:00 Fluid Neutrophils 92 % 12/24/19 07:00 Fluid Monocytes 8 % 12/24/19 07:00 Fluid Crystals URIC ACID 12/24/19 07:00 Fluid Crystal Source SYNOVIAL 12/24/19 07:00 Fl Crystal Path Review Will follow 12/24/19 07:00 Fl Pathologist Comment May follow 12/24/19 07:00 Fluid Comment 2 TNP 12/24/19 07:00 - Medical Decision Making Based on crystal analysis and fluid analysis most likely gout. He got good relief in the past with prednisone I will write for that and some OxyIR. Follow-up with primary care in the office if not improving return if worsening or concerns <Vinny Gutiérrez - Last Filed: 12/24/19 08:55> Procedures Procedure(s): Left knee arthrocentesis --1 cc of 0.5% Marcaine with epinephrine was used to locally anesthetize the aspiration site at the medial anterior knee after isopropanol prep. The area was then prepped with Betadine, and an 18- gauge needle was inserted from the medial aspect into the subpatellar joint space, and a total of 50 cc of straw-colored transparent fluid with a positive string sign was withdrawn with very little traumatic bleeding associated. Pa tient tolerated well, no complications. <Kurtis Crowley - Last Filed: 12/24/19 06:58> ED Disposition <Kurtis Crowley - Last Filed: 12/24/19 06:58> <Vinny Gutiérrez - Last Filed: 12/24/19 08:55> - Plan for ED Patient: Disposition: Home or Assisted Living Diagnosis: Gout Instructions: ED Diet Gout, What Is Gout? Prescriptions: Prednisone [Deltasone] 60 mg PO DAILY #15 tab Prescription Printed Oxycodone [Oxyir] 5 mg PO Q6H PRN PRN 3 Days #12 tab PRN Reason: pain Prescription Printed Referrals: Charles Novoa MD [Primary Care Provider] - 3-5 Days if not improving
--- NOTE | 2019-12-24 06:42 | RAD_ITS ---
STUDY: X-RAY - LEFT KNEE REASON FOR EXAM: Male, 34 years old. LEFT KNEE PAIN, NKI TECHNIQUE: 4 view(s) of the knee. COMPARISON: None. FINDINGS: Normal visualized distal femur. Normal visualized proximal tibia and fibula. Normal proximal tibiofibular articulation. Normal medial femorotibial compartment. Normal lateral femorotibial compartment. Normal patellofemoral articulation. The soft tissue structures are unremarkable. RAD/Knee 4 or More Views IMPRESSION: Normal x-ray examination of the knee. Electronically Signed: Kamran Carrasquillo MD at 7:06 EDT , Service support ,
[2019-12-24] MEDS: oxyCODONE 5 MG Tablet PO (07:02)
[2019-12-24 07:07] LABS: Pathologist Comment/Body Fluid May follow
[2019-12-24 07:09] LABS: Absolute Lymphocyte Count 2.27 X10^3/uL (0.83-4.51); Basophil% 0.6 % (0-1); Eosinophil# 0.99 X10^3/uL; Eosinophils% 6.3 % (0-5); Hematocrit 51.7 % (40-54); Hemoglobin 16.3 g/dL (13.0-16.5); Lymphocyte # 2.27 X10^3/ul (4.0); Lymphocyte % 14.4 % (19-41); Mean Corp Hgb Conc 31.5 g/dL (32-36); Mean Corpuscular Hgb 27.8 pg (27.0-32.0); Mean Corpuscular Volume 88.1 fL (80-94); Mean Platelet Vol. 9.1 fl (6.2-12.0); Monocyte# 1.37 X10^3/uL; Monocyte% 8.7 % (0-10); NRBC Flagged by Analyzer 0 % (0-5); Neutrophil # 10.99 X10^3/uL (2.7-7.7); Neutrophil % 69.6 % (47-70); Platelet Count 284 K/mm3 (150-450); RBC Distribution Width CV 14.4 % (11.6-14.6); RBC Distribution Width SD 46.8 fl (35.1-43.9); Red Blood Count 5.87 M/mm3 (4.6-6.2); White Blood Count 15.8 K/mm3 (4.4-11.0)
[2019-12-24 07:22] LABS: Anion Gap 4 (5-15); BUN 22 mg/dL (7-18); BUN/Creat Ratio 15.4 RATIO (10-20); Calcium,Total 8.9 mg/dL (8.5-10.1); Chloride 114 mmol/L (98-107); Creatinine, Serum 1.43 mg/dL (0.70-1.30); EST Glomerular Filtration Rate 60 mL/min (>60); Est Glom Filt Rate - Afr Amer 72 mL/min (>60); Glucose 99 mg/dL (74-106); Sodium Level 141 mmol/L (136-145); Uric Acid 7.6 mg/dL (3.5-7.2)
[2019-12-24 07:40] LABS: Body Fluid Mononuclear WBC # 1.019 10^3/uL; Body Fluid Mononuclear WBC % 6.5 %; Body Fluid Polynuclear WBC # 14.616 10^3/uL; Body Fluid Polynuclear WBC % 93.5 %
[2019-12-24 07:52] LABS: Auto B Fluid Analyzer BKGD Ct COUNTS W/IN LIMITS (W/IN LIMITS); Body Fluid Total Cells Counted 15.508 10^3/ul
[2019-12-24 07:53] LABS: Appearance/Body Fluid CLOUDY; Color/Body Fluid LT YEL; Source- Body Fluid OTHER
[2019-12-24 08:35] LABS: Monocytes 8 %; Neutrophil (Segs) 92 %
[2019-12-24 08:41] LABS: Red Cell Count/Body Fluid 634 /mm3
[2019-12-24 08:42] LABS: Body Fluid QC Type(s) BF1Q; Source- Body Fluid SYNOVIAL
[2019-12-24 09:05] VITALS: BP 132/90; PULSE 102; RESP 16; O2SAT 100
[2019-12-25 14:22] LABS: Pathologist Review Reviewed
== END 2019-12-24 09:06 | disposition home or self-care (01) ==
PROVIDERS: Emergency Medicine; Emergency Provider Emergency Medicine; PCP Family Medicine
DX: M1A.9XX0 Chronic gout, unspecified, without tophus (tophi) (principal); Q60.0 Renal agenesis, unilateral; F17.200 Nicotine dependence, unspecified, uncomplicated; Z79.899 Other long term (current) drug therapy
CPT/HCPCS: 20610; 73564; 80048; 84550; 85025; 87070; 87075; 87205; 89050; 89060; 99285

== ENCOUNTER 2020-04-13 18:15 | Emergency (ER) | payer MEDICAID, SELFPAY ==
[2020-04-13 18:16] VITALS: BP 136/101; PULSE 112; RESP 18; TEMP 37.6; O2SAT 96; BMI 38.7
--- NOTE | 2020-04-13 18:39 | ED.VIS.GEN ---
History of Present Illness Chief Complaint: Lower Extremity Injury Informant: Patient Narrative: Nontraumatic left knee pain. Patient states he feels like his gout flareups. States he is on allopurinol. Patient has not had any trauma. He has had no redness in his knee. He states he feels like he has fluid on his knee again. Is ambulatory with antalgic gait. - Past Medical History (1) Gout Status: Chronic (2) Solitary kidney, congenital Status: Chronic Past Medical History - Allergies and Home Meds Allergies/Adverse Reactions: Allergies No Known Allergies Allergy (Verified 04/13/20 18:28) Primary Care Physician: Ramesh Steele MD [STAFF PHYSICIAN] - Charles Novoa MD [Primary Care Provider] - Prior records reviewed: Yes Past Medical History: - - Reviewed in problem list Surgical History: noncontributory Lives: Alone Smoking Status: Current every day smoker Alcohol: None Drugs: None Review of Systems General: Denies: Chills, Fever, Sweats Eyes: Denies: Visual changes - bilaterally, Diplopia ENT: Denies: Rhinorrhea, Sore throat Cardiovascular: Denies: Chest pain, Palpitations Respiratory: Denies: Dyspnea, Cough, Dyspnea on exertion Genitourinary: Denies: Dysuria, Hematuria, Frequency Musculoskeletal: Reports: Extremity Pain - Left knee pain. Denies: Back pain Skin: Denies: Rash, Abscess Neurological: Denies: Headache, Weakness Psych: Denies: Depression, Anxiety Physical Exam Vital Signs/Narrative: Vital Signs Temp Pulse Resp BP Pulse Ox 04/13/20 18:16 99.6 F H 112 H 18 136/101 H 96 Inital Vital Signs reviewed: Yes General: Well nourished, No Acute Distress Head: Normocephalic, Atraumatic Eyes: Perrl, EOMI Extremities: - - Left mildly tender to palpation. No pain with short arc range of motion. No ligament laxity. There is slight swelling here. There is no increased warmth Neurological: Alert, Oriented x3, Cranial nerves II-XII grossly intact Psychological: Normal affect, Normal Mood Diagnostic/Tx/Re-eval - Medical Decision Making Patient presenting with what he feels is a gout flareup. He had no trauma to the knee. Patient is on allopurinol normally to help this. Patient has no signs of an infected knee joint. Patient is unsure what he normally gets for his gout flares. I will start him on prednisone. I do not believe he needs imaging. He is counseled to follow-up with his PCP to ensure resolution. Impression: 1. Gout flare ED Disposition - Plan for ED Patient: Disposition: Home or Assisted Living Instructions: ED Gout, ED Gout Diet Prescriptions: Oxycodone HCl/Acetaminophen [Percocet 5/325] 1 tab PO Q6H PRN PRN 2 Days #6 tab PRN Reason: Pain Prescription Printed Prednisone 10 mg PO UD #33 tab Prescription Printed Referrals: Charles Novoa MD [Primary Care Provider] - Ramesh Steele MD [STAFF PHYSICIAN] -
[2020-04-13] MEDS: oxyCODONE 5 MG Tablet PO (18:51)
[2020-04-13] MEDS: predniSONE 20 MG Tablet 60 MG PO (18:51)
[2020-04-13 18:58] VITALS: RESP 14
== END 2020-04-13 18:58 | disposition home or self-care (01) ==
PROVIDERS: Emergency Provider Student in an Organized Health Care Education/Training Program; PCP Family Medicine
DX: M10.9 Gout, unspecified (principal); R26.9 Unspecified abnormalities of gait and mobility; Q60.0 Renal agenesis, unilateral; F17.200 Nicotine dependence, unspecified, uncomplicated; Z79.899 Other long term (current) drug therapy
CPT/HCPCS: 99283

== ENCOUNTER 2022-07-01 19:28 | Emergency (ER) | payer MEDICAID, SELFPAY ==
[2022-07-01 19:29] VITALS: BP 124/75; PULSE 110; RESP 18; TEMP 36.4; O2SAT 100; BMI 35.3
--- NOTE | 2022-07-01 19:43 | EDS_ITS ---
HPI History of Present Illness Chief Complaint: Other, Pain/Inj Detail of Chief Complaint: Gout flare Informant: patient Narrative Narrative: Patient presents the emergency department complaint of pain in his right hand in the second MCP joint where he commonly gets gout flares. Patient also complains of pain in the right great toe. Patient states that he missed 2 doses of allopurinol over the weekend and started having discomfort. Patient has had similar flares in the past. Denies any trauma. Denies fever or recent illness. [facility] Medical History (Updated 07/01/22 @ 19:[address] Gus Marcos, ) Gout Home Medications allopurinol 100 mg tablet 100 mg PO DAILY 12/24/19 [History Last Taken Unknown] famotidine 20 mg tablet 20 mg PO DAILY 12/24/19 [History Last Taken Unknown] prednisone 20 mg tablet 60 mg PO DAILY #15 tabs 12/24/19 [Rx Last Taken Unknown] albuterol sulfate 90 mcg/actuation aerosol inhaler 1 - 2 puff inhalation Q4H PRN PRN Wheezing 04/13/20 [History Last Taken Unknown] prednisone 10 mg tablet 10 mg PO UD #33 tabs 04/13/20 [Rx Last Taken Unknown] hydrocodone-acetaminophen 5-325mg 5mg-325mg 1 tab PO Q4H PRN PRN Pain 2 days #10 TABLETS 07/01/22 [Rx Last Taken Unknown] prednisone 20 mg tablet 20 mg PO BID #10 tabs 07/01/22 [Rx Last Taken Unknown] Allergy/AdvReac Type Severity Reaction Status Date / Time No Known Allergies Allergy Verified 07/01/22 19:31 Social History Smoking Status: Current every day smoker tobacco type: cigarettes ROS ROS ED Review of Systems ROS Unobtainable: other Constitutional Constitutional ED: Reports lethargy; Denies chills, fever(s), sweats or weight loss Eyes Eyes: Denies blurry vision, change in vision or diplopia ENT ENT ED: Denies rhinorrhea or sore throat Cardiovascular Cardiovascular: Denies orthopnea or racing heartbeat Respiratory/Chest Respiratory/Chest: Denies cough, dyspnea, dyspnea on exertion, orthopnea or sputum Gastrointestinal Gastrointestinal: Denies abdominal pain, diarrhea, nausea or vomiting Genitourinary Genitourinary ED: Denies dysuria, hematuria or urinary frequency Musculoskeletal Musculoskeletal: Reports other Details: Right hand pain and right foot pain ; Denies arthralgias, back pain, myalgias or neck pain Integumentary Denies abscess, Abrasions or rash Neurologic Neurologic: Denies headache(s) or weakness Psychiatric Psychiatric: Denies anxiety, depression or suicidal thoughts Endocrine Endocrinology: Denies polydipsia, polyphagia or polyuria Hematologic/Lymphatic Hematologic/Lymphatic: Denies easy bleeding, easy bruising or lymphadenopathy Allergic/Immunologic Allergic/Immunologic ED: Denies mouth swelling, tongue swelling or urticaria EXAM Physical Exam Const Vital Signs: 07/01/22 19:29 Temperature 97.6 F L Temperature Source Temporal Pulse Rate 110 H Respiratory Rate 18 Blood Pressure 124/75 H Blood Pressure Mean 91 Pulse Ox 100 Oxygen Delivery Method Room Air Positive well nourished and well developed General Appearance ED: well developed and NAD HEENT Reports TM's clear and moist mucous membranes normocephalic and atraumatic; Negative for trauma or tenderness Tympanic Membrane ED: Yes TM's clear Eyes PERRL and EOMs intact bilaterally General Eye ED: Negative for pale conjunctiva or scleral icterus Neck no lymphadenopathy, supple and no JVD General: Negative for tenderness Chest Wall inspection of chest normal and palpation of chest normal Chest: Negative for tenderness Resp normal respiratory effort and clear to auscultation bilaterally Effort and Inspection: Negative for respiratory distress or pain with movement Auscultation: Negative for rhonchi, wheezes or diminished lung sounds Cardio regular rate, regular rhythm, S1 normal heart sound, S2 normal heart sound and no murmurs Peripheral Pulses: pulses 2+ throughout GI normal to inspection, nondistended, normoactive bowel sounds, soft to palpation, non-tender, non-distended and no masses Back/Spine no CVA tenderness and no thoracic nor lumbar tenderness Extremity Extremity Narrative: Right hand-patient does have some tenderness palpation over the second MCP joint. Patient has some pain with range of motion. Patient also has tenderness palpation over the MCP joint of the right foot of great toe. General Extremety ED: Negative for edema General Extremity: Negative for edema Neuro oriented x3, CN's II-XII intact bilaterally, no sensory deficits noted and gait normal Sensorium / Orientation: awake, alert, oriented to person, oriented to place and oriented to time Motor Exam: strength 5/5 throughout and strength abnormal Psych mental status grossly normal Skin no rashes or lesions noted and no wounds MDM MDM MDM Narrative Medical decision making narrative: Patient with history of gout. Patient has gouty flare. We will start him on prednisone and give him a few Colbert for pain. Patient advised to follow-up with his primary care physician within next 3 to 5 days. Discharge Plan Triage Chief Complaint: Other, Pain/Inj ED Provider: Gus Marcos Dx/Rx/DC Orders Clinical Impression: Gout flare Instructions: ED Gout Prescriptions: New prednisone 20 mg tablet 20 mg PO BID Qty: 10 0RF hydrocodone-acetaminophen [hydrocodone-acetaminophen] 5-325 mg tablet 1 tab PO Q4H PRN PRN (Reason: Pain) 2 Days Qty: 10 0RF No Action allopurinol 100 MG tablet 100 mg PO DAILY famotidine 20 MG tablet 20 mg PO DAILY prednisone 20 MG tablet 60 mg PO DAILY Qty: 15 0RF Rx Instructions: With food albuterol sulfate 1 INHALER inhaler 1 - 2 puff INHALATION Q4H PRN PRN (Reason: Wheezing) prednisone 10 MG tablet 10 mg PO UD Qty: 33 0RF Rx Instructions: Take 4 tablets daily for 3 days, then 3 daily for 3 days, then 2 daily for 3 days, then 1 a day for 3 days then 1 QOD for 3 doses. Primary Care Provider: Charles Novoa Referrals: Charles Novoa MD [Primary Care Provider] - 3-5 Days Disposition Disposition: Home, Self Care
[2022-07-01] MEDS: predniSONE 20 MG Tablet 40 MG PO (19:47)
== END 2022-07-01 19:58 | disposition home or self-care (01) ==
LOC: ED 19:56
PROVIDERS: Emergency Provider Emergency Medicine; PCP Family Medicine; Visit Provider Emergency Medicine
DX: M10.9 Gout, unspecified (principal); F17.210 Nicotine dependence, cigarettes, uncomplicated; Z79.899 Other long term (current) drug therapy
CPT/HCPCS: 99282

== ENCOUNTER 2022-08-17 08:25 | Emergency (ER) | payer MEDICAID, SELFPAY ==
[2022-08-17 08:25] VITALS: BP 146/80; PULSE 86; RESP 14; TEMP 36.1; O2SAT 100; BMI 34.9
--- NOTE | 2022-08-17 08:42 | RAD_ITS ---
STUDY: X-RAY - RIGHT FOOT CLINICAL: Male, 37 years old. Heel pain. TECHNIQUE: 3 view(s) of the foot. COMPARISON: None. FINDINGS: There is an enthesophyte involving the posterior superior calcaneus at the site of insertion of the Achilles tendon. Plantar spur. Normal visualized subtalar, talonavicular, calcaneocuboid, tarsal and tarsometatarsal articulations. Normal metatarsi. Normal metatarsophalangeal joint of the great toe. Normal tibial and fibular sesamoid bones. Normal interphalangeal joint of the great toe. Normal phalanges of the great toe. Normal second through fifth metatarsophalangeal joints. Normal interphalangeal joints and phalanges of the lesser toes. The soft tissue structures are unremarkable. RAD/Foot min 3 Views IMPRESSION: Calcaneal spurs. Electronically Signed: Moy De Luna MD at 9:25 EDT ,
--- NOTE | 2022-08-17 08:44 | EDS_ITS ---
HPI History of Present Illness Chief Complaint: Lower Extremity Injury Narrative Narrative: 37-year-old male past medical history of gout, presents with pain in his right posterior heel that has had since yesterday. He has been wearing regular tennis shoes. He denies any fevers or chills. No nausea or vomiting, no other symptoms. He states he has pain when he stands or walks. No chest pain or shortness of breath. Pain is mainly on his Achilles tendon area. He does state that he is employed as a auto parts delivery sales worker, and has to walk a lot, but was not working this weekend when his symptoms began. [facility] Medical History Gout Home Medications allopurinol 100 mg tablet 100 mg PO DAILY 12/24/19 [History Last Taken Unknown] famotidine 20 mg tablet 20 mg PO DAILY 12/24/19 [History Last Taken Unknown] prednisone 20 mg tablet 60 mg PO DAILY #15 tabs 12/24/19 [Rx Last Taken Unknown] albuterol sulfate 90 mcg/actuation aerosol inhaler 1 - 2 puff inhalation Q4H PRN PRN Wheezing 04/13/20 [History Last Taken Unknown] prednisone 10 mg tablet 10 mg PO UD #33 tabs 04/13/20 [Rx Last Taken Unknown] hydrocodone-acetaminophen 5-325mg 5mg-325mg 1 tab PO Q4H PRN PRN Pain 2 days #10 TABLETS 07/01/22 [Rx Last Taken Unknown] prednisone 20 mg tablet 20 mg PO BID #10 tabs 07/01/22 [Rx Last Taken Unknown] prednisone 20 mg tablet 40 mg PO DAILY 7 days #14 tabs 08/17/22 [Rx Last Taken Unknown] Allergy/AdvReac Type Severity Reaction Status Date / Time No Known Allergies Allergy Verified 08/17/22 08:28 Social History Smoking Status: Current every day smoker tobacco type: cigarettes ROS ROS ED ROS Narrative Constitutional: No fever, no chills. HEENT: No sore throat. No neck pain. No loss of vision. No rhinorrhea. Cardiovascular: No chest pain. No palpitations. No pedal edema. Respiratory: No cough, no shortness of breath. Abdominal: No abdominal pain. No nausea. No vomiting. Genitourinary: No dysuria. No hematuria. Musculoskeletal: No myalgias. Right posterior ankle pain, more in Achilles tendon area. Neurologic: No headaches. No dizziness. No lightheadedness. Skin: No rash. No change in color. Psychiatric: No depression. No anxiety. EXAM Physical Exam Narrative Exam Narrative: Afebrile. Vital signs noted. HEENT: Normocephalic. Atraumatic. PERRL, EOMI. Neck soft and supple. No point tenderness or step off. Cardiovascular: Regular rate and rhythm. No murmurs, rubs, or gallops appreciated. Respiratory: No tachypnea. Lungs clear to auscultation bilaterally. Gastrointestinal: Abdomen soft, nontender, with normoactive bowel sounds. No rebound or guarding. Neurological: Awake. Alert. Nonfocal, nonlateralizing. Skin: No rash. Normal color. No pallor. Musculoskeletal: No pedal edema. Full range of motion extremities. Mild tenderness to palpation right Achilles tendon, no palpable deficit. Dorsiflexion and flexion of foot intact. More pain noted with dorsiflexion of foot. No noted erythema or overt swelling. No tenderness to palpation along plantar fascia. Palpable dorsalis pedis pulse. Const Vital Signs: 08/17/22 08:25 Temperature 97.0 F L Temperature Source Temporal Pulse Rate 86 Respiratory Rate 14 Blood Pressure 146/80 H Blood Pressure Mean 102 Pulse Ox 100 Oxygen Delivery Method Room Air MDM MDM MDM Narrative Medical decision making narrative: I reviewed the patient's prior records and he has had gout flares in his arm and in his knee in the past. This could be a Shadi arthritis attack versus partial tear of his Achilles tendon versus tendinitis from overuse. X-rays were obtained and he was given ibuprofen here in the emergency department. On my interpretation of his foot x-rays in 3 views, there is no evidence of fracture but he does have calcaneal spurs. I reviewed the radiology report which confirms my independent interpretation. At this point in time, he will be treated as a gouty exacerbation, or other inflammatory process. He was given crutches and an Con wrap and will continue ice and elevation at home. I wrote him for a prednisone burst for the next week to take 40 mg daily. He states that he had discussed with his primary care physician possibly increasing his allopurinol as this may be a gouty attack. He was also referred to the voyage management system operator on-call. At this point in time, he will be discharged to follow-up as an outpatient. I feel he can be discharged safely home. I did not feel that any laboratory work is indicated, nor do I feel that he requires observation or admission return instructions were reviewed. Disposition is discharged home in stable condition. History & Record Review Discussion w/independent historian: Patient Additional record(s) reviewed:: Prior ED visit Radiography Diagnostic Testing: Clinical Impression(s) from Imaging Studies Foot X-Ray 08/17/22 08:42 IMPRESSION: Calcaneal spurs. Electronically Signed: Moy De Luna MD at 9:25 EDT , Discharge Plan Triage Chief Complaint: Lower Extremity Injury ED Provider: Dilan Clemons Dx/Rx/DC Orders Clinical Impression: Inflammatory pain of right heel, Calcaneal spur of right foot, Gout Instructions: ED Gout, ED Heel Spur, ED RICE, ED Gout Diet Prescriptions: New prednisone 20 mg tablet 40 mg PO DAILY 7 Days Qty: 14 0RF No Action allopurinol 100 MG tablet 100 mg PO DAILY famotidine 20 MG tablet 20 mg PO DAILY prednisone 20 MG tablet 60 mg PO DAILY Qty: 15 0RF Rx Instructions: With food albuterol sulfate 1 INHALER inhaler 1 - 2 puff INHALATION Q4H PRN PRN (Reason: Wheezing) prednisone 10 MG tablet 10 mg PO UD Qty: 33 0RF Rx Instructions: Take 4 tablets daily for 3 days, then 3 daily for 3 days, then 2 daily for 3 days, then 1 a day for 3 days then 1 QOD for 3 doses. prednisone 20 mg tablet 20 mg PO BID Qty: 10 0RF hydrocodone-acetaminophen [hydrocodone-acetaminophen] 5-325 mg tablet 1 tab PO Q4H PRN PRN (Reason: Pain) 2 Days Qty: 10 0RF Primary Care Provider: Charles Novoa Referrals: Jeremy Espinosa DPM [Med Staff - Active Staff] - As soon as possible Charles Novoa MD [Primary Care Provider] - 3-5 Days if not improving Disposition Disposition: Home, Self Care
[2022-08-17] MEDS: Ibuprofen 400 MG Tablet 800 MG PO (08:45)
[2022-08-17 09:49] VITALS: BP 134/78; PULSE 78; RESP 14; TEMP 36.6; O2SAT 99
== END 2022-08-17 09:50 | disposition home or self-care (01) ==
PROVIDERS: Emergency Provider Emergency Medicine; PCP Family Medicine; Visit Provider Emergency Medicine
DX: M10.9 Gout, unspecified (principal); M77.31 Calcaneal spur, right foot; F17.210 Nicotine dependence, cigarettes, uncomplicated; Z79.899 Other long term (current) drug therapy
CPT/HCPCS: 73630; 99284

== ENCOUNTER 2022-10-24 04:16 | Emergency (ER) | payer MEDICAID, SELFPAY ==
[2022-10-24 04:16] VITALS: BP 134/86; PULSE 85; RESP 18; TEMP 36.3; O2SAT 100; BMI 34.9
--- NOTE | 2022-10-24 04:46 | EDS_ITS ---
HPI History of Present Illness Chief Complaint: Dental Narrative Narrative: 37-year-old male with dental infection. He states he has a dental abscess in the right side of his lower mandible. He is mostly edentulous. He states he was on antibiotics 3 weeks ago for this and states he believes it was Augmentin. His symptoms improved. He is a dentist appoint for next but he notes the pain is coming back. No fevers or chills. No trouble swallowing or breathing. No nausea or vomiting. [facility] Medical History Gout Home Medications allopurinol 100 mg tablet 100 mg PO DAILY 12/24/19 [History Last Taken Unknown] famotidine 20 mg tablet 20 mg PO DAILY 12/24/19 [History Last Taken Unknown] prednisone 20 mg tablet 60 mg (3 x 20 mg) PO DAILY #15 tabs 12/24/19 [Rx Last Taken Unknown] albuterol sulfate 90 mcg/actuation aerosol inhaler 1 - 2 puff inhalation Q4H PRN PRN Wheezing 04/13/20 [History Last Taken Unknown] prednisone 10 mg tablet 10 mg PO UD #33 tabs 04/13/20 [Rx Last Taken Unknown] hydrocodone-acetaminophen 5-325mg 5mg-325mg 1 tab PO Q4H PRN PRN Pain 2 days #10 TABLETS 07/01/22 [Rx Last Taken Unknown] prednisone 20 mg tablet 20 mg PO BID #10 tabs 07/01/22 [Rx Last Taken Unknown] prednisone 20 mg tablet 40 mg (2 x 20 mg) PO DAILY 7 days #14 tabs 08/17/22 [Rx Last Taken Unknown] amoxicillin 875 mg-potassium clavulanate 125 mg tablet 1 tab PO BID #20 tabs 10/24/22 [Rx Last Taken Unknown] Allergy/AdvReac Type Severity Reaction Status Date / Time No Known Allergies Allergy Verified 08/17/22 08:28 Social History Smoking Status: Former smoker ROS ROS ED Constitutional Constitutional ED: Denies chills, fever(s) or sweats Eyes Eyes: Denies blurry vision or change in vision ENT ENT ED: Reports other Details: Dull pain ; Denies ear pain or sore throat Cardiovascular Cardiovascular: Denies chest pain, palpitations or racing heartbeat Respiratory/Chest Respiratory/Chest: Denies cough, dyspnea or sputum Gastrointestinal Gastrointestinal: Denies abdominal pain, constipation, diarrhea, nausea or vomiting Genitourinary Genitourinary ED: Denies dysuria, hematuria or urinary frequency Musculoskeletal Musculoskeletal: Denies arthralgias, myalgias or neck pain Integumentary Denies abscess, Abrasions or rash Neurologic Neurologic: Denies headache(s), paresthesias or weakness Psychiatric Psychiatric: Denies anxiety, depression, suicidal ideation or suicidal thoughts Endocrine Endocrinology: Denies polydipsia or polyuria EXAM Physical Exam Const Vital Signs: 10/24/22 04:16 Temperature 97.4 F L Temperature Source Temporal Pulse Rate 85 Respiratory Rate 18 Blood Pressure 134/86 H Blood Pressure Mean 102 Pulse Ox 100 Oxygen Delivery Method Room Air Positive well nourished General Appearance ED: NAD HEENT HEENT Narrative: Mostly edentulous. There are 3 teeth left on the right side of the lower mandible anteriorly which are in various forms of decay. There is tenderness. No obvious abscess or drainable area. Sublingual edema. No submandibular edema. Airway patent without stridor Negative for trauma Mouth ED: Yes oral and palatal mucosa normal, Yes lips normal, Yes tongue normal and Yes salivary gland normal Mouth: oral and palatal mucosa normal, lips normal, tongue normal and salivary gland normal Neck no lymphadenopathy Resp normal respiratory effort and no retractions Cardio regular rate and regular rhythm GI normal to inspection, nondistended, normoactive bowel sounds Neuro oriented x3 and CN's II-XII intact bilaterally Sensorium / Orientation: alert Psych mental status grossly normal Skin no rashes or lesions noted MDM MDM MDM Narrative Medical decision making narrative: Patient presenting with dental pain. He requested prescription for antibiotics as his pain is increasing. He states that Augmentin helped him last time. Is a dental appointment next . Started on Augmentin. He is counseled on using Tylenol at home. Patient has only 1 kidney so was recommended daily from NSAIDs. Return precautions were discussed. Impression: 1. Dental caries Lab Data Attestation: I reviewed the patient's lab results. Discharge Plan Triage Chief Complaint: Dental ED Provider: Jeremy Julio Dx/Rx/DC Orders Instructions: Dental Abscess Prescriptions: New amoxicillin-pot clavulanate 875-125 mg tablet 1 tab PO BID Qty: 20 0RF No Action allopurinol 100 MG tablet 100 mg PO DAILY famotidine 20 MG tablet 20 mg PO DAILY prednisone 20 MG tablet 60 mg PO DAILY Qty: 15 0RF Rx Instructions: With food albuterol sulfate 1 INHALER inhaler 1 - 2 puff INHALATION Q4H PRN PRN (Reason: Wheezing) prednisone 10 MG tablet 10 mg PO UD Qty: 33 0RF Rx Instructions: Take 4 tablets daily for 3 days, then 3 daily for 3 days, then 2 daily for 3 days, then 1 a day for 3 days then 1 QOD for 3 doses. prednisone 20 mg tablet 20 mg PO BID Qty: 10 0RF hydrocodone-acetaminophen [hydrocodone-acetaminophen] 5-325 mg tablet 1 tab PO Q4H PRN PRN (Reason: Pain) 2 Days Qty: 10 0RF prednisone 20 mg tablet 40 mg PO DAILY 7 Days Qty: 14 0RF Primary Care Provider: Charles Novoa Referrals: Charles Novoa MD [Primary Care Provider] - Disposition Disposition: Home, Self Care
[2022-10-24] MEDS: Amox/Clavulanate 875 MG Tablet PO (04:54)
== END 2022-10-24 05:06 | disposition home or self-care (01) ==
LOC: ED 04:51
PROVIDERS: Emergency Provider Student in an Organized Health Care Education/Training Program; PCP Family Medicine; Visit Provider Student in an Organized Health Care Education/Training Program
DX: K02.9 Dental caries, unspecified (principal); Z79.899 Other long term (current) drug therapy; Z87.891 Personal history of nicotine dependence
CPT/HCPCS: 99283

== ENCOUNTER 2024-08-03 16:30 | Outpatient (RCR) | payer MEDICAID, SELFPAY ==
--- NOTE | 2024-07-10 17:57 | HP.PTEVAL_ITS ---
Patient's Visit Information Visit Information Visit Information: ALVARO NEFF is a 39 year old M referred to Physical Therapy by HUE Pearson with a diagnosis of CHRONIC MIDLINE LOW BACK PAIN W/O SCIATICA. Date of Evaluation: 07/10/24 Physical Therapist: Meño Quintana, PT, Cert MDT, OCS Visit Plan Frequency: 2x /Week Duration: 4 Weeks Plan: PT INTERVENTIONS AQUATIC THERAPY DLS ,POSTURAL EX'S ,LE FLEXABILITY ,AND STRENGTHENING BLE Subjective Subjective: This 39 y/o male presents to physical therapy with low back pain chronic. Patient has low back issues many years. Patient has h/o sciatica pain ~ 2 years. Currently patient has pain LS. Pain located LS/SI to buttock described burning. Aggravating factors sitting/standing extended periods. If pain is worse bending lifting worse. Alleviating factors some better walking and TENS unit helps. Coughing/sneezing + . Bowel/bladder-. Patient pain does not affects sleeping. Patient has prior PT. No recent x-rays. No h/o trauma/injury. Patient condition affects QOL and function/job demands. Patient goals to decrease pain. SOCIAL: VOCATION: Generator Operator Pain Bilateral Back: Pain Intensity (Out of 10): 5 Pain Intensity Range: 10 Objective Objective: POSTURE:WFL GAIT: reciprocal pattern NEURO: denies paresthesia/tingling ,reflexes L3-4,L-4.-L5,L5-S1 1/3 MMT: quads/hams/hip 4/5 ,ankle 5/5 FLEXABILITY: hamstrings min tight LUMBAR ROM: flexion min ,extension min loss ,side glides min loss Special Tests L/S Slump test left side: Negative L/S Slump test right side: Negative L/S Left Straight Leg Raise: Negative L/S Right Straight Leg Raise: Negative Lumbar Standing: Flexion - Mechanical Response: No effect Lumbar Standing: Flexion - Symptoms During Testing: No effect Lumbar Standing: Flexion - Symptoms After Testing: No effect Lumbar Standing: Extension - Mechanical Response: No effect Lumbar Standing: Extension - Symptoms During Testing: Increases Lumbar Standing: Extension - Symptoms After Testing: No worse Lumbar Standing: Right Side Glides - Mechanical Response: No effect Lumbar Standing: Right Side [place] - Symptoms During Testing: No effect Lumbar Standing: Right Side [place] - Symptoms After Testing: No effect Lumbar Standing: Left Side [place] - Mechanical Response: No effect Lumbar Standing: Left Side [place] - Symptoms During Testing: No effect Lumbar Standing: Left Side [place] - Symptoms After Testing: No effect Balance/Special Test Scores Oswestry Low Back Score: 15 Goals Goal 1:: Patient to be I with Aquatic therapy Goal Time Frame: 4-6 Weeks Goal 2:: Patient to improve lumbar ROM for function of recovery for job demands Goal Time Frame: 4-6 Weeks Goal 3:: Patient to demonstrate improve function by 50% with less pain for job demands Goal Time Frame: 4-6 Weeks Goal 4:: Patient to improve back oswestry score by 5 points to improve QOL Goal Time Frame: 4-6 Weeks Rehabilitation Potential Physical Therapy Diagnosis: Patient has lumbar pain with dysfunction with pain with position and motion testing worse with extended standing and occasional bending thus benefit from skilled PT Rehabilitation Potential: Good Anticipated Interventions Patient/Client Instruction: Educate patient on: Condition and Plan of Care For the Purpose of:: To decrease pain, To increase ROM, To improve muscle performance and motor function, To improve ability to perform ADL's, To increase tolerance to activity/condition/position, To improve ability of physical actions for home/community/work/leisure, To improve health of tissue, To decrease soft tissue restriction, To increase flexibility/ROM and To improve tolerance to ADL's Therapeutic Exercise to Include: Strength training, Endurance training, Body mechanics, Postural training, In an aquatic setting and Dynamic Lumbar Stabilization Comment: BLE For the Purpose of:: To decrease pain, To increase ROM, To improve muscle performance and motor function, To improve ability to perform ADL's, To increase tolerance to activity/condition/position, To improve ability of physical actions for home/community/work/leisure, To improve gait and locomotor functions, To improve health of tissue, To decrease soft tissue restriction, To increase flexibility/ROM and To improve tolerance to ADL's Text: Thank you for the opportunity to evaluate your patient. For Medicare and Medicare HMO plans, please review the plan of care and approve it. It will need to be FAXED BACK to us at [phone] for Medicare purposes. For Medicare only, by signing this I certify the plan of care. Please let me know if there are questions or concerns regarding this plan of care. Physician Signature: Date:
--- NOTE | 2024-08-03 16:49 | HP.PTDCSUM_ITS ---
Discharge Summary D/C summary: It has been my pleasure to treat ALVARO NEFF referred by Erin Garcia NP- C, with the diagnosis of CHRONIC MIDLINE LOW BACK PAIN W/O SCIATICA for a total of 7 visit(s). Discharge Date: 08/03/24 Please see the following information for a summary of their discharge status. Subjective Subjective: PT in water helped pain 3-4 days Little better overall Bending/lifting ,sitting Pain Bilateral Back: Pain Intensity (Out of 10): 6 L KNEE: Pain Intensity (Out of 10): 6 Objective Objective/Function: POSTURE:WFL GAIT: reciprocal pattern NEURO: denies paresthesia/tingling ,reflexes L3-4,L-4.-L5,L5-S1 1/3 MMT: quads/hams/hip 4/5 ,ankle 5/5 FLEXABILITY: hamstrings min tight LUMBAR ROM: flexion min ,extension min loss ,side glides min loss Goals Goal 1:: Patient to be I with Aquatic therapy Goal Progress: Goal Met Goal 2:: Patient to improve lumbar ROM for function of recovery for job demands Goal Progress: Goal Met Goal 3:: Patient to demonstrate improve function by 50% with less pain for job demands Goal Progress: Goal Met Goal 4:: Patient to improve back oswestry score by 5 points to improve QOL Goal Progress: Goal Met Plan Plan: D/C TO HEP D/C Information Discharge Comments: HEP d/c sentence: If there are questions or concerns regarding this patient's physical therapy, please feel free to call me at [phone]. Thank you for the referral of this patient. Sincerely, Meño Quintana, PT, Cert MDT, OCS Balance/Gait/Functional tests Balance/Special Test Scores Oswestry Low Back Score: 4
== END 2024-08-03 19:00 | disposition home or self-care (01) ==
LOC: PT 16:30
PROVIDERS: PCP Family Medicine; Referring Provider Registered Nurse; Visit Provider Registered Nurse
DX: M54.50 Low back pain, unspecified (principal); G89.29 Other chronic pain
CPT/HCPCS: 97113; 97161; 97530